=== PATIENT | female | born 1950 | race Hispanic/Latino ===

== ENCOUNTER 2020-05-20 08:46 | Day surgery (SDC) | payer MEDICARE ==
[~2020-05-20 08:46] MED LIST: SODIUM CHLORIDE 0.9% 1000 ML 1,000 ML IV SCH
--- NOTE | 2020-05-20 09:19 | History and Physical Report ---
HISTORY OF PRESENT ILLNESS: This is a 70-year-old white female who has lately been having some diarrhea and recently had a CT scan, which showed presence of diverticular disease without any diverticulitis with some thickening of the sigmoid wall, possibly secondary to chronic diverticulitis. Lately, she has been having some epigastric pain. She does have a prior history of peptic ulcer disease and has been advised to have an EGD done for further assessment. She had a last EGD that was 6 years ago. ALLERGIES: She has history of allergy to PERCOCET AND CODEINE. SOCIAL HISTORY: Denies history of smoking or alcohol use. No cardiac issues. She has had flu shots. PHYSICAL EXAMINATION: VITAL SIGNS: Temperature is 96.8, blood pressure is 120/62, pulse is 73, height is 5 feet 3 inches, weight is 164 pounds. HEENT: Shows no JVD. LUNGS: Shows reduced breath sounds. CARDIOVASCULAR: Normal. ABDOMEN: Shows some epigastric and mid abdominal tenderness to palpation. Bowel sounds present. EXTREMITIES: No pedal edema. NEUROLOGIC: The patient is otherwise alert and oriented. ASSESSMENT: Epigastric pain, peptic ulcer disease, diarrhea, diverticular disease. PLAN: Treat the patient with H2 omega. Treat the patient with Lomotil on a p.r.n. basis for the diarrhea to do an EGD at [facility] on 05/20/2020. JOB# [id number] SHA/NTS
--- NOTE | 2020-05-20 10:20 | Anesthesia Consultation ---
Anesthesia Consult and Med Hx Date of service: 05/20/20 - Airway Anesthetic Teeth Evaluation: Good ROM Head & Neck: Adequate Mental/Hyoid Distance: Adequate Mallampati Class: Class II Intubation Access Assessment: Probably Good - Pre-Operative Health Status ASA Pre-Surgery Classification: ASA3 Proposed Anesthetic Plan: MAC - Pulmonary Hx Smoking: No Hx Asthma: Yes (inhaler used 8 months ago) Hx Respiratory Symptoms: No SOB: No COPD: No Home Oxygen Therapy: No Hx Pneumonia: No Hx Sleep Apnea: Yes - Cardiovascular System Hx Hypertension: No Hx Coronary Artery Disease: No Hx Heart Attack/AMI: No Hx Angina: No Hx Percutaneous Transluminal Coronary Angioplasty (PTCA): No Hx Cardia Arrhythmia: No Hx Pacemaker: No Hx Internal Defibrillator: No Hx Valvular Heart Disease: No Hx Heart Murmur: No Hx Peripheral Vascular Disease: No - Central Nervous System Hx Neuromuscular Disorder: No Hx Seizures: Yes (seizures in jan 2020) CVA: No Hx Back Pain: No Hx Psychiatric Problems: Yes (depression ) - Gastrointestinal Hx Ulcer: Yes Hx Gastroesophageal Reflux Disease: No - Endocrine Hx Renal Disease: No (frequent UTIs) Hx End Stage Renal Disease: No Hx Cirrhosis: No Hx Liver Disease: No Hx Insulin Dependent Diabetes: No Hx Non-Insulin Dependent Diabetes: No Hx Thyroid Disease: No Hx Hypothyroidism: Yes Hx Hyperthyroidism: No - Hematic Hx Anemia: No Hx Sickle Cell Disease: No - Other Systems Hx Alcohol Use: No Hx Substance Use: No Hx Cancer: No Hx Obesity: Yes
--- NOTE | 2020-05-20 10:21 | Anesthesia Day of Surgery ---
Anesthesia Day of Surgery - Day of Surgery Patient Examined: Yes Patient H&P Reviewed: Yes Patient is NPO: Yes
[2020-05-20] MEDS ORDERED: propofoL 200 MG/20 ML VIAL IV ONE (10:24)
[2020-05-20] MEDS ORDERED: LIDOCAINE MPF (2%) 20 MG/1 ML VIAL 5 ML ONE (10:47)
[2020-05-20 11:14] VITALS: BP 126/58
--- NOTE | 2020-05-20 11:14 | Procedure Note ---
Date of procedure: 05/20/20 Pre-op diagnosis: Abdominal Pain/ GERD/ P/H/O Gastric Ulcer Post-op diagnosis: other (Mild to Moderate, Erosive Esophagitis/ Gastritis/ R/O Eosinophilic Esophagitis/ R/O Celiac Disease/ No Gastric Ulcer present now) Procedure: EGD with Biopsy Anesthesia: [facility] Surgeon: NIKUNJ VAZQUEZ Estimated blood loss: minimal Pathology: list Specimen disposition: to lab Condition: stable Disposition: same day (Treat with PPI and prn Bentyl, encourage Probiotic use; avoid aspirin and NSAID for 5 days, otherwise resume home medication and follow up in 1 to 2 weeks ([phone]).)
--- NOTE | 2020-05-20 11:18 | Operative Report ---
PROCEDURE: EGD. INDICATIONS: This is a 70-year-old white female who has prior history of gastric ulcer and abdominal pain. EGD was done to make sure that there was not any recurrence of any peptic ulcer disease. DESCRIPTION OF PROCEDURE: Procedure was done after getting informed consent with MAC anesthesia. Instrument was passed through the hypopharynx into the esophagus, which showed [id number] erosive esophagitis. Biopsy was done from the distal as well as the mid esophagus to assess for the severity of the erosive esophagitis and to rule out for any associated eosinophilic esophagitis. The stomach did not show any ulcers either in the straight or the retroverted view. Biopsy was done from the gastric antrum, gastric body and angular incisura to rule out for H. pylori and atrophic gastritis. The pylorus was patent. The duodenum in the first and second portion appeared normal. Biopsy was done from the second part to rule out for possible celiac disease. ASSESSMENT: Abdominal pain, gastroesophageal reflux disease symptoms, past history of gastric ulcer. No gastric ulcer at present, [id number] erosive esophagitis, rule out eosinophilic esophagitis, gastritis, rule out celiac disease. PLAN: To treat the patient with PPI. Encouraged the patient to take probiotics, have the patient avoid aspirin and aspirin-related products for the next few days and also to place the patient on Bentyl on a p.r.n. basis if the patient has no glaucoma and follow up in the office in 1-2 weeks' time. Procedure was done in the GI lab with assistance of the GI lab team, which included SESAR, Maile Hall; tech and with assistance of Anesthesia. JOB# [id number] SHA/DURGA
--- NOTE | 2020-05-20 16:50 | Post Anesthesia Evaluation ---
- Post Anesthesia Evaluation Patient Participated: Yes Airway Patent: Yes Stable Respiratory Function: Yes Nausea/Vomiting: No Temp > 96.8F: Yes Pain Manageable: Yes Adequeate Hydration: Yes Anesthesia Complications: No
== END 2020-05-20 08:47 | disposition home or self-care (01) ==
LOC: GIO 08:46
DX: R10.9 Unspecified abdominal pain (principal); K21.9 Gastro-esophageal reflux disease without esophagitis; J45.909 Unspecified asthma, uncomplicated; G47.30 Sleep apnea, unspecified; E66.9 Obesity, unspecified; E03.9 Hypothyroidism, unspecified; Z88.8 Allergy status to other drugs, medicaments and biological substances; Z79.899 Other long term (current) drug therapy; Z79.82 Long term (current) use of aspirin; Z98.890 Other specified postprocedural states; Z90.49 Acquired absence of other specified parts of digestive tract; Z68.29 Body mass index [BMI] 29.0-29.9, adult
CPT/HCPCS: 43239; 88305; 88342; J2704; J7030